=== PATIENT | female | born 1995 | race Caucasian/White ===

== ENCOUNTER 2024-11-20 19:28 | Emergency (ER) | payer OTHER ==
[2024-11-20] MEDS ORDERED: Lidocaine 1% w/Epinephrine 1:100K 20 ML VIAL ONE (20:06)
[2024-11-20] MEDS ORDERED: Boostrix 0.5 ML (Tdap) VIAL (>/=7 yrs of age) ONE (20:07)
== END 2024-11-20 20:50 ==
LOC: EEVIPCON 19:28 → ERS 19:28
DX: S01.81XA Laceration without foreign body of other part of head, initial encounter (principal); W21.07XA Struck by softball, initial encounter; Y92.143 Cell of prison as the place of occurrence of the external cause
CPT/HCPCS: 12013; 70486; 90471; 90715